=== PATIENT | female | born 2000 | race Caucasian/White ===

== ENCOUNTER 2020-12-15 05:54 | Inpatient (IN) | payer BC, MEDICAID ==
[2020-12-15] MEDS ORDERED: Scopolamine 1.5 MG Transdermal Patch TOP ONE (06:15)
[2020-12-15] MEDS ORDERED: Acetaminophen 500 MG Tab PO ONE (06:15)
[2020-12-15] MEDS ORDERED: cefOXitin 2 GM Vial ONE (06:31)
[2020-12-15] MEDS: Celecoxib 200 MG Cap PO SCH ×2 (06:35→10:19)
[2020-12-15] MEDS ORDERED: Dextrose 5%-Lactated Ringers 1,000 ML IV SCH (07:00)
[2020-12-15] MEDS ORDERED: Dexamethasone 4 MG/ML SDV ONE (07:10)
[2020-12-15] MEDS ORDERED: Glycopyrrolate 0.2 MG/ML 5 ML MDV ONE (07:10)
[2020-12-15] MEDS ORDERED: fentaNYL 250 MCG/5 ML SDV ONE ×2 (07:10→09:42)
[2020-12-15] MEDS ORDERED: Ondansetron 4 MG/2 ML SDV ONE (07:10)
[2020-12-15] MEDS ORDERED: Rocuronium 50 MG/5 ML Vial ONE (07:10)
[2020-12-15] MEDS ORDERED: Neostigmine Methylsulfate 1 MG/ML 5 ML Syringe ONE (07:10)
[2020-12-15] MEDS ORDERED: Propofol 200 MG/20 ML SDV ONE (07:10)
[2020-12-15] MEDS ORDERED: Succinylcholine 200 MG/10 ML MDV ONE (07:10)
[2020-12-15] MEDS ORDERED: cefOXitin 2 GM in Sodium Chloride 0.9% 50 ML IV ONE (07:30)
[2020-12-15] MEDS ORDERED: Lactated Ringers 1,000 ML ONE (07:31)
[2020-12-15] MEDS ORDERED: Ketamine 500 MG/5 ML MDV IV SCH (07:45)
[2020-12-15] MEDS ORDERED: Ketamine 50 MG in Sodium Chloride 0.9% 49.5 ML IV SCH (07:45)
[2020-12-15] MEDS ORDERED: fentaNYL 100 MCG/2 ML SDV ONE ×2 (07:53→08:12)
[2020-12-15] MEDS ORDERED: Labetalol 20 MG/4 ML Syringe ONE (08:23)
[2020-12-15] MEDS ORDERED: Atropine 0.4 MG/ML SDV ONE (10:04)
[2020-12-15] MEDS ORDERED: Cyclobenzaprine 10 MG Tab PO PRN (10:14)
[2020-12-15] MEDS: hydrOXYzine HCL 100 MG/2 ML SDV IM PRN ×2 (10:22→16:51)
[2020-12-15] MEDS: Dextrose 5%-Lactated Ringers 1,000 ML IV SCH ×2 (10:22→15:13)
[2020-12-15] MEDS ORDERED: hydrALAZINE 20 MG/ML SDV ONE (10:24)
[2020-12-15] MEDS ORDERED: Sodium Chloride 0.9% 10 ML ONE (10:25)
[2020-12-15] MEDS: SCOPOLAMINE PATCH CHECK TOP SCH (10:25)
[2020-12-15] MEDS ORDERED: Acetaminophen 500 MG Tab PO PRN (11:00)
[2020-12-15] MEDS ORDERED: Albuterol/Ipratropium 3.0-0.5 MG/3 ML Neb Soln INH PRN (11:00)
[2020-12-15] MEDS ORDERED: HYDROmorphone 0.5 MG/0.5 ML Syringe IVPUSH PRN (11:00)
[2020-12-15] MEDS ORDERED: Metoclopramide 10 MG/2 ML SDV IVPUSH PRN (11:00)
[2020-12-15] MEDS ORDERED: Labetalol 20 MG/4 ML Syringe IVPUSH PRN (11:00)
[2020-12-15] MEDS ORDERED: Calcium Gluconate 10% 1 GM/10 ML SDV IVPUSH PRN (11:00)
[2020-12-15] MEDS ORDERED: diphenhydrAMINE 50 MG/ML SDV IVPUSH PRN (11:00)
[2020-12-15] MEDS ORDERED: Ondansetron 4 MG/2 ML SDV IVPUSH PRN (11:00)
[2020-12-15] MEDS ORDERED: HYDROmorphone 1 MG/ML Syringe IV PRN (11:00)
[2020-12-15] MEDS: cefOXitin 2 GM in Sodium Chloride 0.9% 50 ML IV SCH ×2 (13:56→19:33)
[2020-12-15] MEDS: busPIRone 5 MG Tab PO SCH ×2 (13:56→21:38)
[2020-12-15] MEDS ORDERED: Pantoprazole 40 MG Vial IVPUSH SCH (14:00)
[2020-12-15] MEDS ORDERED: Acetaminophen 500 MG Tab PO SCH (14:00)
[2020-12-15] MEDS ORDERED: MVI, Adult with Vitamin K 10 ML, Thiamine 200 MG, Zinc/Copper/Manganese/Selenium 1 ML i... IV SCH ×4 (16:00)
[2020-12-15] MEDS: Heparin Sodium 5,000 Units/ML Vial SUBCUT SCH (16:51)
[2020-12-15] MEDS: oxyCODONE 5 MG Tab PO PRN (20:30)
[2020-12-15] MEDS: Acetaminophen 160 MG Tab,Disintegrating PO SCH (21:36)
[2020-12-16] MEDS: Dextrose 5%-Lactated Ringers 1,000 ML IV SCH ×2 (00:35→05:55)
[2020-12-16] MEDS: cefOXitin 2 GM in Sodium Chloride 0.9% 50 ML IV SCH ×2 (02:08→07:41)
[2020-12-16] MEDS ORDERED: Iopamidol 612 MG/ML 50 ML SDV PO STA (03:24)
[2020-12-16] MEDS: Heparin Sodium 5,000 Units/ML Vial SUBCUT SCH ×2 (03:43→16:24)
[2020-12-16] MEDS: Acetaminophen 160 MG Tab,Disintegrating PO SCH ×3 (05:11→21:11)
[2020-12-16] MEDS ORDERED: Ondansetron 4 MG Tab.DIS PO PRN (07:09)
[2020-12-16] MEDS ORDERED: hydrOXYzine HCl 25 MG Tab PO PRN (07:10)
[2020-12-16] MEDS ORDERED: Dextrose 5%-Lactated Ringers 1,000 ML IV SCH (07:15)
--- NOTE | 2020-12-16 09:01 | CR ---
[facility] HISTORY: Postbariatric surgery FINDINGS: Patient swallowed water-soluble contrast. Upright views of the abdomen show no evidence of extravasation or obstruction. There is a surgical drain in the left upper quadrant. IMPRESSION: Status post bariatric surgery No extravasation or obstruction seen
[2020-12-16] MEDS: SCOPOLAMINE PATCH CHECK TOP SCH (09:04)
[2020-12-16] MEDS: Celecoxib 200 MG Cap PO SCH ×2 (09:04→21:11)
[2020-12-16] MEDS: busPIRone 5 MG Tab PO SCH ×3 (09:04→21:11)
--- NOTE | 2020-12-16 09:39 | PN ---
DATE OF SERVICE: 12/16/2020 SUBJECTIVE: Debbie is postoperative day #1 after Dillon-en-Y gastric bypass surgery. Upper GI was normal. She had an episode where she felt fullness and nausea in her midepigastric area that did resolve. Vital signs otherwise have been stable. She is up ambulating. Step 1 diet. She had 690 in. Urine output 2125. Her CARSON drain put out 115 mL of a light pink drainage. REVIEW OF SYSTEMS: Remainder of review of systems negative for any pertinent positives or negatives. OBJECTIVE: GENERAL: Debbie Smart is a pleasant 20-year-old female. She is alert, orientated. VITAL SIGNS: TPR 97.7, 74, 16, blood pressure 117/54. HEENT: Negative. NECK: Supple. HEART: Regular rate and rhythm. LUNGS: Clear. ABDOMEN: Dressings dry and intact. Abdominal binder is on. CARSON drain intact. EXTREMITIES: Without peripheral edema. ASSESSMENT: Laparoscopic Dillon-en-Y gastric bypass surgery, liver biopsy, repair of diaphragmatic hernia, and excision of mediastinal lipoma POSTOPERATIVE DIAGNOSES: Morbid obesity, hepatomegaly, paraesophageal diaphragmatic hernia, and mediastinal lipoma. Date of surgery: 12/15/2020. Surgeon: Cesario Akhtar MD. PLAN: 1. Decrease IV to 100 mL per hour. 2. Dressing off, may shower. 3. Step 2 gastric bypass diet without cereal. 4. Zofran ODT 4 mg every 4 hours p.r.n. nausea. 5. Atarax 25 mg q.4 hours for pain. 6. Discontinue continuous pulse ox and telemetry. 7. Communication order for 3 med cups per hour and record at bedside. 8. Continue use of incentive spirometer. 9. We will evaluate p.r.n. or in a.m. Aissatou Hagen PA-C /[id number]
[2020-12-16] MEDS: oxyCODONE 5 MG Tab PO PRN ×2 (13:30→19:43)
[2020-12-16] MEDS ORDERED: MVI, Adult with Vitamin K 10 ML, Thiamine 200 MG, Zinc/Copper/Manganese/Selenium 1 ML i... IV SCH ×4 (16:00)
[2020-12-16] MEDS ORDERED: Pantoprazole 40 MG Delayed-Release Granules 1 Packet PO SCH (16:30)
[2020-12-17] MEDS: Heparin Sodium 5,000 Units/ML Vial SUBCUT SCH (03:53)
[2020-12-17] MEDS: Acetaminophen 160 MG Tab,Disintegrating PO SCH (05:30)
[2020-12-17] MEDS: oxyCODONE 5 MG Tab PO PRN (07:39)
[2020-12-17] MEDS ORDERED: Magnesium Hydroxide 400 MG/5 ML Susp 30 ML Cup PO PRN (07:47)
[2020-12-17] MEDS ORDERED: Cyanocobalamin (Vitamin B12) 1,000 MCG/ML SDV IM ONE (09:00)
[2020-12-17] MEDS: Celecoxib 200 MG Cap PO SCH (09:27)
[2020-12-17] MEDS: SCOPOLAMINE PATCH CHECK TOP SCH (09:27)
[2020-12-17] MEDS: busPIRone 5 MG Tab PO SCH (09:27)
--- NOTE | 2020-12-18 10:24 | DISCH ---
FINAL DIAGNOSES: 1. Morbid obesity. 2. Marked hepatomegaly. 3. Paraesophageal diaphragmatic hernia, associated mediastinal lipoma. 4. History gastroesophageal reflux disease. 5. History of anxiety. 6. Mild sleep apnea. OPERATIVE PROCEDURES: Done on 12/15/2020, diagnostic laparoscopy with: 1. Laparoscopic Dillon-en-Y gastric bypass long limb gastroenterostomy. 2. Pablo-Cut needle liver biopsy. 3. Repair of paraesophageal diaphragmatic hernia along with excision of mediastinal lipoma. SUMMARY: This is a 20-year-old female presenting with longstanding morbid obesity and increasingly significant comorbidities. After preoperative evaluation and discussion, she wished to proceed with a gastric bypass procedure. This was done on the date of the procedure with the above additional procedures included. Postoperatively, she has had no significant problems. She will be discharged home on a step-2 diet and be continued on her current medications, BuSpar and Celebrex, but also Tylenol and oxycodone 5 mg p.o. q.6 hours p.r.n. pain will be prescribed #40 and we will send home with two doses of milk of magnesia. Followup will be with Aissatou Hagen at [facility] on 12/26/2019. /[id number]
--- NOTE | 2020-12-19 10:03 | OR ---
DATE OF PROCEDURE: 12/15/2020 SURGEON: Cesario Akhtar MD PREOPERATIVE DIAGNOSIS: Morbid obesity. POSTOPERATIVE DIAGNOSES: 1. Morbid obesity. 2. Marked hepatomegaly. 3. Paraesophageal diaphragmatic hernia. 4. Mediastinal lipoma. OPERATIVE PROCEDURES: 1. Laparoscopic Dillon-en-Y gastric bypass with long limb gastroenterostomy (33296). 2. Pablo-Cut needle liver biopsy (66361). 3. Repair of paraesophageal diaphragmatic hernia (85114). 4. Excision of mediastinal lipoma (74404). ANESTHESIA: General. BEEKEEPER FARMER: Aissatou Hagen PA-C INDICATIONS FOR PROCEDURE: This is a 20-year-old female presenting with longstanding morbid obesity and increasingly significant comorbidities. After preoperative evaluation and discussion, she wished to proceed with a gastric bypass procedure. Potential risks including bleeding, infection, leaks from various GI tract closures, problems with bowel obstruction over time, as well as possibility of cardiopulmonary, septic, or hemorrhagic complications leading to were discussed, and the patient wishes to proceed. DETAILS OF THE PROCEDURE: The patient was taken to the operating room. After general endotracheal anesthesia was induced, she was placed in the lithotomy position. The abdomen was then prepped and draped. At 15 cm inferior and 5 cm left of the xiphoid process, a transverse incision was made and the peritoneal cavity entered under direct vision with an Optiview trocar, inflated to 15 mmHg pressure of CO2. Laparoscope was reinserted. No underlying trocar insertion site or injuries were seen. Following this, 5 additional trocars were placed across her mid abdomen and bilateral transversus abdominis plane blocks placed. The patient was noted to have marked hepatomegaly with liver volume being 2-3 times normal and therefore liver biopsies were obtained from the left lobe of the liver and minimal bleeding from the biopsy sites, was controlled with electrocautery. The omentum was then divided in the midline up to the level of the transverse colon to allow identification of the small bowel and ligament of Treitz. Small bowel was then traced out 100 cm distal to that point where it was divided transversely with a EUNICE stapler. Small bowel was then traced down additional 150 cm where the [id number] enteroenterostomy was accomplished with internal firing of the Endo-EUNICE 60 mm stapler. Common opening was then closed transversely with the same stapler. The angles of anastomosis and mesenteric defect were closed with some 0 Ethibond stitch along with fibrin sealant. was then mobilized in an antecolic position up to the level of the gastroesophageal junction without tension. The liver was then retracted anteriorly. The patient was noted to have a moderate-sized paraesophageal diaphragmatic hernia containing some omentum, perigastric fat, and some of the edge of the gastric fundus. This was reduced to the peritoneum overlying it, incised, and reflected downward. During the course of that dissection, mediastinal lipoma was encountered and excised to facilitate more adequate crural repair which was accomplished anteriorly and with some 0 Ethibond sutures reinforced with PTFE pledgets. The gastrointestinal catheter was then inflated to 15 mL and pulled up snugly against the EG junction. Gastric wall was then marked with electrocautery and balloon catheter deflated and pulled up from the esophagus. The lesser omental tissue adjacent to the gastric cardia was then incised allowing dissection behind the stomach at that level. Pouch formation was initiated with a transverse firing of the EUNICE stapler at the level gastric cardia and then continued with EUNICE alexander up to and through the angle of His to complete formation of the pouch. Both staple lines were noted to be intact. The anvil of the 25 mm EEA stapler was attached to [place] sump-type tube and brought down through the mouth and taken out through a small opening in the gastric pouch, allowing the anvil likewise to be pulled down within the gastric pouch and divided with the Dillon limb. It was then opened in the main body, EEA stapler was passed several centimeters in the lumen of the small bowel, brought up the anvil, united with it, thus creating a gastrojejunostomy. Upon removal of the stapler, within it. Small bowel was closed off over the vascular staple line. Gastrojejunostomy was reinforced with some 3-0 Vicryl seromuscular stitch along with fibrin sealant. A leak test was accomplished with injection of 120 mL of air in the gastric pouch. While it was submerged with cefoxitin-containing saline solution, no leaks were identified. A single Jose Luis-San drain was then taken out through the left lateral trocar site and positioned adjacent to the gastrojejunostomy and from there up into the splenic fossa. The trocars were then sequentially removed. The peritoneal cavity deflated. Incisions were closed with 4-0 Vicryl skin stitch, which was also used to fix the drain, and the patient was taken to the recovery room in satisfactory condition. Physician gallery assistant, Aissatou Hagen, played an essential role in assisting in this case, helping to position the patient, retract structures as needed, as well as suturing and cutting sutures when indicated. Her presence improved patient safety and decreased the operative time. Cesario Akhtar MD /[id number]
== END 2020-12-17 09:45 | disposition home or self-care (01) | DRG 403 ==
LOC: JP.SDS 05:54 → JP.SDSSCHI 05:54 → EDSTATUS 07:15 → JP.MS 09:15
PROVIDERS: ADMIT Surgery; ATTEND Surgery
PROC: 0D164ZA Bypass Stomach to Jejunum, Percutaneous Endoscopic Approach (ICD-10-PCS; principal; 2020-12-15)
PROC: 0FB24ZX Excision of Left Lobe Liver, Percutaneous Endoscopic Approach, Diagnostic (ICD-10-PCS; 2020-12-15)
PROC: 0BQT4ZZ Repair Diaphragm, Percutaneous Endoscopic Approach (ICD-10-PCS; 2020-12-15)
PROC: 0JB63ZZ Excision of Chest Subcutaneous Tissue and Fascia, Percutaneous Approach (ICD-10-PCS; 2020-12-15)
DX: E66.01 Morbid (severe) obesity due to excess calories (principal); R16.0 Hepatomegaly, not elsewhere classified; K21.9 Gastro-esophageal reflux disease without esophagitis; K44.9 Diaphragmatic hernia without obstruction or gangrene; D17.1 Benign lipomatous neoplasm of skin and subcutaneous tissue of trunk; G47.30 Sleep apnea, unspecified; F41.9 Anxiety disorder, unspecified; Z87.891 Personal history of nicotine dependence; Z68.41 Body mass index [BMI] 40.0-44.9, adult
CPT/HCPCS: 36415; 74240; 74240-26; 82962; 84703; 85027; 86850; 86900; 86901; 88304; 88307; 88313; 93005; 94762; A9270-GY; C9113; J0171; J0330; J0360; J0461; J0694; J1100; J1644; J1790; J2405; J2704; J2710; J2795; J3010; J3410; J3411; J3420; J3475; J3490; J7050; J7120; J7121; Q9967